=== PATIENT | female | born 1960 | race Caucasian/White ===

== ENCOUNTER 2018-09-06 15:08 | Emergency (ER) | payer MEDICAID ==
[~2018-09-06] VITALS: Wt 77.0 kg
[2018-09-06] MEDS ORDERED: KETOROLAC 15 MG INJ IV STA (17:59)
[2018-09-06] MEDS ORDERED: SOD CHLORIDE 0.9% 1,000 ML IV STA (17:59)
--- NOTE | 2018-09-06 19:12 | ERD ---
ER Documentation Chief Complaint Chief Complaint abd pain and constipation for the past 4 days. no releif with laxatives. HPI This is a 58-year-old woman complaining of diffuse lower abdominal cramping and constipation times 4 days. She has had very little stool with bowel movements over the last week and she has been using [id number] laxatives without relief. She denies blood per rectum or melena, no fevers or chills, no vomiting, no chest pain or shortness of breath. ROS All systems reviewed and are negative except as per history of present illness. Medications Home Meds Reported Medications Calcium Carbonate (Oysco-500) 500 Mg Tablet, 500 MG PO BID, TAB 09/06/18 Glucosamine Sulfate 2KCL (GLUCOSAMINE) 1,000 Mg Tablet, 1000 MG PO DAILY, TAB 09/06/18 Gabapentin* (Gabapentin*) 600 Mg Tablet, 600 MG PO BID, #60 TAB 09/06/18 Glipizide* (Glipizide*) 5 Mg Tablet, 5 MG PO BID, TAB 09/06/18 Metformin* (Glucophage*) 1,000 Mg Tablet, 1000 MG PO BID, #60 TAB 09/06/18 Allergies Allergies: Coded Allergies: No Known Allergy (Unverified , 09/06/18) PMhx/Soc Obesity History of Surgery: No Anesthesia Reaction: No Hx Neurological Disorder: No Hx Respiratory Disorders: No Hx Cardiac Disorders: Yes (htn ) Hx Psychiatric Problems: No Hx Miscellaneous Medical Probl: Yes (DM , ARTHRITIS ) Hx Alcohol Use: No Hx Substance Use: No Hx Tobacco Use: No Smoking Status: Never smoker FmHx Family History: No diabetes Physical Exam Vitals Vital Signs Date Temp Pulse Resp B/P (MAP) Pulse Ox O2 O2 Flow FiO2 Time Delivery Rate 09/06/18 82 18 141/75 96 Room Air 18:05 (97) 09/06/18 98.1 74 18 123/78 98 15:16 (93) Physical Exam GENERAL: Well-developed, well-nourished, well-hydrated, in no apparent distress, looks nontoxic in appearance HEENT: Moist mucous membranes, pink conjunctiva, no cervical spine tenderness or step-off deformities, no goiter, no jaundice or icterus, extraocular movements intact without pain. No submandibular induration, and no pharyngeal erythema NEURO: Alert and oriented 3, cranial nerves II through XII intact bilaterally, pupils equal round reactive to light, no focal deficits or facial asymmetry, sensation intact distally Strength 5/5 in upper and lower extremities bilaterally CARDIAC: Regular rate and rhythm, no murmurs rubs or gallops LUNGS: Clear bilaterally no wheezing crackles or stridor ABDOMEN: Soft nontender, no guarding, no rigidity, no rebound, no psoas sign no obturator sign. Normoactive bowel sounds SKIN: Warm and dry to touch, no abrasions, contusions, or hematomas, no lacerations, no ecchymosis, no target lesions, and without ulcers EXTREMITIES: No clubbing cyanosis or edema, calves are bilaterally symmetrical, no Homans sign, no popliteal cord sign. Distal pulses equal and bilateral PSYCH: Normal affect without agitation or irritability Result Diagram: 09/06/18180709/06/181807 Results 24 hrs Laboratory Tests Test 09/06/18 18:08 White Blood Count 13.5 10^3/ul Red Blood Count 4.89 10^6/ul Hemoglobin 15.1 g/dl Hematocrit 43.6 % Mean Corpuscular Volume 89.2 fl Mean Corpuscular Hemoglobin 30.9 pg Mean Corpuscular Hemoglobin Concent 34.6 g/dl Red Cell Distribution Width 11.7 % Platelet Count 240 10^3/UL Mean Platelet Volume 11.2 fl Immature Granulocytes % 0.400 % Neutrophils % 76.9 % Lymphocytes % 18.2 % Monocytes % 4.1 % Eosinophils % 0.2 % Basophils % 0.2 % Nucleated Red Blood Cells % 0.0 /100WBC Immature Granulocytes # 0.060 10^3/ul Neutrophils # 10.4 10^3/ul Lymphocytes # 2.5 10^3/ul Monocytes # 0.6 10^3/ul Eosinophils # 0.0 10^3/ul Basophils # 0.0 10^3/ul Nucleated Red Blood Cells # 0.0 10^3/ul Urine Color YELLOW Urine Clarity SLIGHTLY CLOUDY Urine pH 9.0 Urine Specific [place] 1.010 Urine Ketones 1+ mg/dL Urine Nitrite NEGATIVE mg/dL Urine Bilirubin NEGATIVE mg/dL Urine Urobilinogen NEGATIVE mg/dL Urine Leukocyte Esterase NEGATIVE Lupis/ul Urine Microscopic RBC 2 /HPF Urine Microscopic WBC 5 /HPF Urine Squamous Epithelial Cells FEW /HPF Urine Bacteria FEW /HPF Urine Hemoglobin NEGATIVE mg/dL Urine Glucose 3+ mg/dL Urine Total Protein NEGATIVE mg/dl Sodium Level 140 mmol/L Potassium Level 3.7 mmol/L Chloride Level 95 mmol/L Carbon Dioxide Level 31 mmol/L Anion Gap 14 Blood Urea Nitrogen 13 mg/dl Creatinine 0.44 mg/dl Est Glomerular Filtrat Rate mL/min > 60 mL/min Glucose Level 259 mg/dl Calcium Level 9.9 mg/dl Total Bilirubin 0.3 mg/dl Direct Bilirubin 0.00 mg/dl Indirect Bilirubin 0.3 mg/dl Aspartate Amino Transf (AST/SGOT) 20 IU/L Alanine Aminotransferase (ALT/SGPT) 18 IU/L Alkaline Phosphatase 117 IU/L Total Protein 8.4 g/dl Albumin 4.6 g/dl Globulin 3.80 g/dl Albumin/Globulin Ratio 1.21 Lipase 109 U/L Current Medications Medications Dose Sig/Rowena Start Time Status Last (Trade) Ordered Route PRN Stop Time Admin Dose Reason Admin Sodium 1,000 ml @ Q1H STAT 09/06/18 DC 09/06/18 Chloride 1,000 mls/hr IV 17:59 18:08 09/06/18 18:58 Ketorolac 15 mg ONCE STAT 09/06/18 DC 09/06/18 Tromethamine IV 17:59 18:09 (Toradol) 09/06/18 18:03 Procedures/MDM IV line was established patient was placed on ekg monitor rhythm strip revealed a sinus rhythm at about 80 bpm with upright P and T waves. Patient was afebrile I administered 1 L normal saline IV and Toradol 15 mg IV x1. CBC revealed a mild leukocytosis of 14, electrolytes revealed mild hyperglycemia, liver function tests normal, urinalysis equivocal. CT scan of the abdomen and pelvis was performed,IMPRESSION: No evidence of urolithiasis, obstructive uropathy or diverticulitis. Nonvisualization appendix. Constipation. Stranding perirectal fat. Question proctitis. 15 mm left adrenal adenoma.. Given the possibility of early proctitis and urinalysis results I will treat her with 1 week course of ciprofloxacin. Patient's vital signs are normal and her pain is been controlled she will be discharged for continued outpatient management. Differential diagnoses considered, included but not limited to acute coronary syndrome, pulmonary embolism, aortic dissection, abdominal aortic aneurysm, sepsis, stroke, meningitis, encephalitis, pneumonia, appendicitis, cholecystitis, bowel obstruction, pyelonephritis, nephrolithiasis, cystitis, as well as metabolic, hematologic, and electrolyte abnormalities. As well as abscess, cellulitis, fractures, and dislocations. Patient feels much better at this time, and vital signs are normal, symptoms have improved. I did give strict instructions to return to the ED if symptoms continue or worsen, patient will otherwise follow-up with primary care physician. Patient understood instructions and agreed to plan. Disclaimer: Inadvertent spelling and grammatical errors are likely due to EHR/dictation software use and do not reflect on the overall quality of patient care. Also, please note that the electronic time recorded on this note does not necessarily reflect the actual time of the patient encounter. Departure Diagnosis: Primary Impression: Constipation Constipation type: slow transit constipation Qualified Codes: K59.01 - Slow transit constipation Additional Impressions: Acute UTI Proctitis Adrenal adenoma Laterality: left Qualified Codes: D35.02 - Benign neoplasm of left adrenal gland Condition: ARSENIO Taylor MD Sep 06, 2018 19:12
[2018-09-06] MEDS ORDERED: GABA-526 PO (20:00)
[2018-09-06] MEDS ORDERED: GLIP5TAB13 PO (20:00)
[2018-09-06] MEDS ORDERED: MTF1000T PO (20:00)
[2018-09-06] MEDS ORDERED: CALC500T11 PO (20:01)
[2018-09-06] MEDS ORDERED: GLUC100015 PO (20:01)
[2018-09-06] MEDS ORDERED: CIPR500T4 PO (20:37)
[2018-09-06 21:14] VITALS: BP 124/72; PULSE 74; RESP 18
== END 2018-09-06 21:14 | disposition home or self-care (01) ==
LOC: E/R 15:08
DX: K59.01 Slow transit constipation (principal); N39.0 Urinary tract infection, site not specified; K62.89 Other specified diseases of anus and rectum; D35.02 Benign neoplasm of left adrenal gland; I10 Essential (primary) hypertension; E11.9 Type 2 diabetes mellitus without complications; Z79.84 Long term (current) use of oral hypoglycemic drugs
CPT/HCPCS: 36415; 74176; 80053; 81001; 83690; 85025; 96374; J1885; J7030; Z7502; 81003